=== PATIENT | male | born 1985 | race Caucasian/White ===

== ENCOUNTER 2018-05-23 08:48 | Emergency (ER) | payer SELFPAY ==
[~2018-05-23] VITALS: Ht 170.2 cm; Wt 57.6 kg
[2018-05-23 08:49] VITALS: BP 133/86
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
--- NOTE | 2018-05-23 09:03 | NUR ---
Patient being evaluated by DR CHAWLA at bedside.
[2018-05-23] MEDS ORDERED: IBUPROFEN 800 MG TAB PO ONE (09:05)
--- NOTE | 2018-05-23 09:12 | NUR ---
pt taken to x ray via w/c accompanied by [employer].
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
[2018-05-23 11:20] VITALS: BP 119/66
== END 2018-05-23 11:19 | disposition home or self-care (01) ==
LOC: MED 08:48
DX: S16.1XXA Strain of muscle, fascia and tendon at neck level, initial encounter (principal); S20.212A Contusion of left front wall of thorax, initial encounter; R03.0 Elevated blood-pressure reading, without diagnosis of hypertension; S09.20XA Traumatic rupture of unspecified ear drum, initial encounter; Y93.89 Activity, other specified; Y92.488 Other paved roadways as the place of occurrence of the external cause; Y99.8 Other external cause status
CPT/HCPCS: 70260; 72040; 74022; 99284